=== PATIENT | female | born 1930 | race Caucasian/White ===

== ENCOUNTER 2018-08-05 10:49 | Emergency (ER) | payer MEDICARE ==
[~2018-08-05] VITALS: Ht 157.5 cm; Wt 50.0 kg
[~2018-08-05 10:49] MED LIST: ARICEPT 5MG; ASPIRIN 32325 MG/TA1 PO; CEFTIN 250250 MG/TAB PO; CEFTIN500 MG PO; COLACE 100100 MG/CAP PO; DESYREL 50MG50 MG PO; KEPPRA 500MG500 MG PO; NAMENDA XR PO; PEPCID 20MG TAB20 MG PO; TYLENOL 325MG325 MG PO; VITAMIN B12500 MCG PO; ZOLOFT 25MG25 MG PO
[2018-08-05 10:53] VITALS: TEMP 97.7
[2018-08-05] MEDS ORDERED: LAMICTAL 100MG100 MG PO (11:38)
[2018-08-05] MEDS ORDERED: MIRALAX119G PO (11:38)
[2018-08-05] MEDS ORDERED: CLARITIN 1010 MG/TAB PO (11:39)
[2018-08-05] MEDS ORDERED: SYNTHROID0.05 MG/TA PO (11:39)
[2018-08-05 14:00] VITALS: BP 104/75; PULSE 90
== END 2018-08-05 14:00 | disposition home or self-care (01) ==
LOC: COL.ER 10:49
DX: S09.90XA Unspecified injury of head, initial encounter (principal); S01.81XA Laceration without foreign body of other part of head, initial encounter; F03.90 Unspecified dementia, unspecified severity, without behavioral disturbance, psychotic disturbance, mood disturbance, and anxiety; W06.XXXA Fall from bed, initial encounter

== ENCOUNTER 2018-12-12 19:23 | Inpatient (IN) | payer MEDICARE ==
[~2018-12-12] VITALS: Ht 157.5 cm; Wt 51.2 kg
[~2018-12-12 19:23] MED LIST changes: +CLARITIN 1010 MG/TAB PO; +LAMICTAL 100MG100 MG PO; +MIRALAX119G PO; +SYNTHROID0.05 MG/TA PO
[2018-12-12 20:57] LABS: BASO # 0.1 (0.0-0.2); BASO % 0.9 % (0.0-2.0); EOS # 0.2 (0.0-0.7); EOS % 2.5 % (0-4.0); GRAN # 5.8 (1.4-6.5); GRAN % 73.5 % (42.2-75.2); HEMATOCRIT 40.6 % (37.0-47.0); HEMOGLOBIN 13.5 g/dl (12.5-16.0); LYMPH # 1.3 (1.2-3.4); MEAN CELL VOLUME 101 fl (80.0-100.0); MEAN CORPUSCULAR HEMOGLOBIN 33 pg (27.0-31.0); MEAN CORPUSCULAR HGB CONC 33 g/dl (33.0-37.0); MEAN PLATELET VOLUME 12.1 fl (7.4-10.4); MONO # 0.6 (0.1-0.6); PLATELET COUNT 201 K/mm3 (130-400); RED BLOOD COUNT 4.04 M/mm3 (4.10-5.30); REDCELL DISTRIBUTION WIDTH-CV 13.6 % (11.5-14.5)
[2018-12-12 21:12] LABS: ALANINE AMINOTRANSFERASE 9 U/L (9-52); ALBUMIN 4.2 gm/dL (3.5-5.0); ALKALINE PHOSPHATASE 83 U/L (50-136); ANION GAP 8 mmol/L (7-16); AST,SGOT 26 U/L (15-37); BILIRUBIN,TOTAL 0.4 mg/dL (0.0-1.0); BLOOD UREA NITROGEN 25 mg/dL (7-17); C-REACTIVE PROTEIN < 0.5 mg/dL (0.0-0.9); CARBON DIOXIDE 29 mmol/L (22-30); CHLORIDE 104 mmol/L (98-107); CREATININE, serum 0.72 (0.52-1.25); GLUCOSE 118 mg/dL (74-106); POTASSIUM 3.7 mmol/L (3.4-5.0); SODIUM 141 mmol/L (137-145); TOTAL PROTEIN 8.1 gm/dL (6.4-8.2)
[2018-12-12 21:21] LABS: TROPONIN-I < 0.012 ng/mL (0.000-0.035)
[2018-12-12] MEDS ORDERED: TYLENOL 325MG325 MG PO ×2 (21:25→23:47)
[2018-12-12] MEDS ORDERED: TYLENOL SU650 MG/SUP RC (21:25)
[2018-12-12] MEDS ORDERED: DULCOLAX S10 MG/SUPP RC ×2 (21:26→23:41)
[2018-12-12] MEDS ORDERED: ATROVENTNS0.03% NS (21:27)
[2018-12-12] MEDS ORDERED: LEVAQUIN 2250 MG/TAB PO (21:28)
[2018-12-12] MEDS ORDERED: LAMICTAL 100MG100 MG PO (21:28)
[2018-12-12] MEDS ORDERED: GOOD NEIGH1200 MG/15 PO (21:29)
[2018-12-12] MEDS ORDERED: MIRALAX PA17 GM/Dose PO (21:30)
[2018-12-12] MEDS ORDERED: SYNTHROID0.05 MG/TA PO (21:31)
[2018-12-12] MEDS ORDERED: BACTRIM DS 8001 TAB PO (21:32)
[2018-12-12] MEDS ORDERED: B-12 500 MCG PO (21:32)
[2018-12-12] MEDS ORDERED: DESITIN RAPID REL13% TP (21:33)
[2018-12-12] MEDS ORDERED: MACROBID 1100 MG/CAP PO (21:33)
[2018-12-12 23:07] LABS: COLLECTION METHOD CATHETER
[2018-12-12 23:40] LABS: AMORPHOUS CRYSTAL Present /uL; MUCOUS Present /lpf; PH 6 (5-8); URINE APPEARANCE Turbid; URINE BACTERIA Moderate /hpf; URINE BILIRUBIN Negative (NEGATIVE); URINE BLOOD 1+ (NEGATIVE); URINE COLOR Amber; URINE GLUCOSE Negative (NEGATIVE); URINE KETONE Negative (NEGATIVE); URINE LEUKOCYTE ESTERASE 2+ (NEGATIVE); URINE NITRATE Negative (NEGATIVE); URINE PROTEIN(semi-quant) 1+ (NEGATIVE); URINE UROBILINOGEN Negative (NEGATIVE)
[2018-12-12 23:57] VITALS: BP 123/64; PULSE 89; TEMP 98.1
[2018-12-13] VITALS (294 sets, daily range): BP systolic 94–112; BP diastolic 56–82; PULSE 62–78; TEMP 97.4–98.1; O2SAT 73–100
--- NOTE | 2018-12-13 01:20 | NUR ---
Received bedside report from KAREN Patino.
--- NOTE | 2018-12-13 02:00 | NUR ---
Notified hospitalist of patient's arrival to ICU. Reported patient's current mental status. BP 103/78. Ok to hold PO Vit B12 due to patient current mental status and drowsiness.
--- NOTE | 2018-12-13 02:00 | NUR ---
Assessment complete; patient able to open eyes on command and said "what" one time after her name was called. Not able to follow other commands or verbalize appropriately otherwise. Patient contracted and favors the left side. Pillow placed under left side to offset pressure point. VS stable at this time. Will continue to monitor.
--- NOTE | 2018-12-13 02:18 | NUR ---
Family at bedside; all questions and concerns addressed.
--- NOTE | 2018-12-13 04:00 | NUR ---
Assisted with repositioning. No concerns at this time. VS continue to be stable.
[2018-12-13 06:10] LABS: BASO # 0.1 (0.0-0.2); BASO % 1.3 % (0.0-2.0); EOS # 0.3 (0.0-0.7); EOS % 5.5 % (0-4.0); GRAN # 3.2 (1.4-6.5); GRAN % 60.7 % (42.2-75.2); HEMOGLOBIN 11.7 g/dl (12.5-16.0); LYMPH # 1.3 (1.2-3.4); LYMPH % 25.3 % (20.0-51.0); MEAN CELL VOLUME 104 fl (80.0-100.0); MEAN CORPUSCULAR HEMOGLOBIN 33 pg (27.0-31.0); MEAN CORPUSCULAR HGB CONC 32 g/dl (33.0-37.0); MONO # 0.4 (0.1-0.6); PLATELET COUNT 171 K/mm3 (130-400); RED BLOOD COUNT 3.51 M/mm3 (4.10-5.30); REDCELL DISTRIBUTION WIDTH-CV 13.8 % (11.5-14.5)
[2018-12-13 06:11] LABS: HEMATOCRIT 36.6 % (37.0-47.0)
[2018-12-13 06:19] LABS: CALCIUM 8.2 mg/dL (8.4-10.2); CREATININE, serum 0.62 (0.52-1.25); POTASSIUM 3.5 mmol/L (3.4-5.0)
--- NOTE | 2018-12-13 07:10 | NUR ---
Bedside report recieved from KAREN Sher. Patient sleeping at this time. MIVF rate verified to run to uncomplcated LFA peripheral site. Care assumed.
--- NOTE | 2018-12-13 07:20 | NUR ---
Daughter in law calls and provides privacy passcode. She is updated to POC and all questions asked are answered.
--- NOTE | 2018-12-13 11:27 | NUR ---
Dr. Hsieh rounds at this time. POC discussed to include transfer to medical floor. Orders as entered CPOE.
--- NOTE | 2018-12-13 11:30 | NUR ---
PT works with patient at this time.
--- NOTE | 2018-12-13 12:03 | NUR ---
Palliative care consult recieved on Mrs. Streeter. Message left for son Jorge Streeter at phone number from face sheet regarding palliative care consult and discussion of goals. Spoke with ICU nurse who does not know when to expect family. Will try contact again later today. Pt is being transferred out of ICU.
--- NOTE | 2018-12-13 12:15 | NUR ---
Patient daughter in law calls for update and is provided such to include POC to transfer patient to medical floor and palliative care consult for quality of life planning. States she will be in this afternoon. All questions asked asnwered.
--- NOTE | 2018-12-13 13:01 | NUR ---
Due to patient having dementia, SW attempted to contact patient's son about discharge planning. SW left a message. SW did contact [facility] and confirm that patient is a resident at their facility.
--- NOTE | 2018-12-13 13:47 | NUR ---
Spoke with daughter in law by phone in response to message I had left on their phone. MORALES was planning on coming in but then the rain became quite heavy and she felt unsafe traveling. She did speak with me by phone for a period of time. Son Jorge tends to be very positive about his mother's health but they both see that she is declining. They feel she is getting great care at [facility]. She is on the memory unit and seems to enjoy the "baby doll care" that she is allowed to participate in. She often walks and eats--prefering sweet foods. She used to like [employer] but now maintains herself on the "pink drink" they give her 3x/day. MORALES is very clear that if Eileen cannot be mobile, she is not sure what her quality of life would be. The couple will talk and get back with me later.
--- NOTE | 2018-12-13 13:53 | NUR ---
Report called to Dalia, student RN and KAREN Mendiola.
--- NOTE | 2018-12-13 14:09 | NUR ---
Patient transferred to medical room 354. Dalia, student RN at bedside. Bed left in low and locked position, call light within reach, rails up x3, bed alarm armed and call light within reach. Family called and updated to patient location.
--- NOTE | 2018-12-13 15:07 | NUR ---
Arrived to the room at this time. The bed alarm was put into place and the patient was prepped as a fall risk. No pain or needs reported at this time.
--- NOTE | 2018-12-13 19:17 | NUR ---
Report given to KAREN Quiroz. Pt is in bed. Call light in reach.
--- NOTE | 2018-12-13 19:56 | NUR ---
Pt in bed, confused, refused medications attempted to use pudding to administer, shift assessments complete, left Pt call light in reach, bed in lowest position, bed alarm on.
[2018-12-14 03:21] VITALS: BP 106/72; PULSE 71; TEMP 98.2
--- NOTE | 2018-12-14 05:19 | NUR ---
Pt slept some during the night, she has had no oral intake during the night, this nurse attempted to give her oral medications using pudding without success, Pt has been posturing and talking incoherently during the night. Vs have been stable.
[2018-12-14 07:59] LABS: BASO # 0.1 (0.0-0.2); BASO % 0.9 % (0.0-2.0); EOS # 0.2 (0.0-0.7); EOS % 2.8 % (0-4.0); GRAN # 4.7 (1.4-6.5); GRAN % 70.8 % (42.2-75.2); HEMOGLOBIN 11.1 g/dl (12.5-16.0); LYMPH # 1.2 (1.2-3.4); LYMPH % 17.3 % (20.0-51.0); MEAN CELL VOLUME 103 fl (80.0-100.0); MEAN CORPUSCULAR HEMOGLOBIN 33 pg (27.0-31.0); MEAN CORPUSCULAR HGB CONC 33 g/dl (33.0-37.0); MEAN PLATELET VOLUME 12.6 fl (7.4-10.4); MONO # 0.5 (0.1-0.6); MONO % 8.1 % (1.7-9.3); PLATELET COUNT 165 K/mm3 (130-400); RED BLOOD COUNT 3.32 M/mm3 (4.10-5.30); REDCELL DISTRIBUTION WIDTH-CV 13.5 % (11.5-14.5)
[2018-12-14 08:00] LABS: HEMATOCRIT 34.2 % (37.0-47.0)
[2018-12-14 08:09] VITALS: BP 97/69; PULSE 70; TEMP 98
[2018-12-14 08:20] LABS: CALCIUM 8.3 mg/dL (8.4-10.2); CREATININE, serum 0.5 (0.52-1.25)
[2018-12-14 08:24] LABS: POTASSIUM 2.9 mmol/L (3.4-5.0)
--- NOTE | 2018-12-14 08:29 | NUR ---
Assessment completed, patient is extrememly confused, she is unable to follow commands or answer questions appropriatley, she is easily agitated and it is difficult to perform a physical assessment, heart RRR/ SR on tele, distal pulses are palpable, no reps. difficulty noted, difficult to assess lung sounds as patient is unable to cooperate, she has nix in place and is patent with yellow urine/ some sediment noted, requested urine cx records from PCP office, IVF infusing, potassium low and i will notify hospitalist, no skin breakdown noted, position changes being done frequently, bed alarm is set, will continue to mnitor
--- NOTE | 2018-12-14 10:43 | NUR ---
Family meeting set for 10am was cancelled due to Gayle being ill and son not wanting to participate in palliative care discussion. Gayle reports that they have talked at [facility] about using hospice ([facility]) if she continues to decline but son is not ready to "give up on her yet!" Encouraged Gayle to relay that we will hope for improvement also and continue care here but that a back up plan would be a good idea if things do not improve. I will call family after rounding occurs to update. Also spoke with [facility] nurse, Felicia. She reports that pt has been up walking until the day she was admitted. She is reluctant to eat a lot and prefers, strawberry supplement, diet pepsi, ice cream, and coffee with hazelnut creamer. We are using the baby doll to help comfort her and that is working. I would recommend return to [facility] at discharge and they will continue to work with son and DIL. They have discussed hospice services but "are not ready yet."
[2018-12-14 11:24] VITALS: BP 94/58; PULSE 71; TEMP 98.1
--- NOTE | 2018-12-14 12:58 | NUR ---
Phone call placed to daughter in law Gayle after physician rounding. Plan to keep her here at hospital overnight, stopping IV fluids to encourage her to drink on her own. ST to see. Favorite foods were ordered for lunch. I would encourage family to keep her at [facility] after discharge to see how she does and if no improvement then to consider hospice services at [facility].
[2018-12-14 15:09] VITALS: BP 97/80; PULSE 72; TEMP 98.6
[2018-12-14 20:08] VITALS: BP 102/62; PULSE 73; TEMP 97
--- NOTE | 2018-12-14 23:37 | NUR ---
Patient assessed around 0. Alert, but disoriented to person, place, time, and situation. Speach is clear, but does not make any sense. No s/sx of pain or discomfort, such as facial grimacing and moaning. Patient incontinent of bowel, perineal hygiene care and catheter care provided. Indwelling nix catheter patent, and draining yellow urine with sediment present. LS CTA. Respirations even and unlabored. HRR. BSAx4. No edema noted. Peripheral IV to left forearm is patent, and without redness, warmth, and swelling. Patient refusing to take oral medication. Tried to crush and put in pudding, but spit back out. Fluids and food encouraged, but will not drink or eat anything. Staff repositions in bed. Patient moves around in bed frequently. Bed alarm is on. Resting in bed at this time. Call light is within reach. Continues on toileting/turning schedule. Needs anticipated by staff.
[2018-12-15 00:35] VITALS: BP 119/87; PULSE 78
--- NOTE | 2018-12-15 02:44 | NUR ---
Resting in bed with eyes closed at this time. Indwelling nix catheter continues to be patent, draining yellow urine with sediment present. Staff continues to provide repositioning in bed during rounds. Staff continues to encourage food and fluids, but patient will not take anything by mouth.
[2018-12-15 06:03] VITALS: BP 94/67; PULSE 87; TEMP 97.5
--- NOTE | 2018-12-15 06:16 | NUR ---
Patient repositioned every two hours and changed during the night. Urine output yellow and clear. Had large, soft formed, brown BM. During changing and repositioning, patient does get confused and yells out/strikes at staff. Explaining to patient what staff is doing does not help decrease anxiety, but patient calms down when staff is done with cares, and seems to be resting. Baby doll in bed with patient, which seems to help. Resting in bed with eyes closed at this time. Call light is within reach. Staff continues to encourage fluids, but refuses. Refused oral medication from this nurse throughout the night.
[2018-12-15 07:26] LABS: CALCIUM 8.8 mg/dL (8.4-10.2); CREATININE, serum 0.55 (0.52-1.25); MAGNESIUM 1.9 mg/dL (1.6-2.3); POTASSIUM 4.1 mmol/L (3.4-5.0)
[2018-12-15 07:41] VITALS: BP 106/61; PULSE 76; TEMP 98.1
--- NOTE | 2018-12-15 08:28 | NUR ---
Assessment completed to best of my abiltity, patient is extremely confused/disroriented, get very agitated when trying to do assessment, she is unable to participate or cooperate with her care in any capacity, she has not eaten or drank anything sence being admitted/ she is so mentally and cognitively disconnected, speech is rambling and inappropriate, we had attempted to set up a palliative / family meeting yesterday, Maren ShinRN has been in contact with family/DPOA to assit with developing plan of care, still recieving IV abx for UTI/ has nix which is patent with clear yellow urine- some sediment noted, heart RRR/SR on tele/ distal pulses are palpable, no resp.difficulty, lungs are CTA as far as I can tell /again patient does not allow for an accurate assessment as she gets very agitated, replacing Potassium per protocol, will continue to monitor
[2018-12-15] MEDS ORDERED: PROBIOTIC ACID1 EAC3 PO (09:42)
--- NOTE | 2018-12-15 10:02 | NUR ---
Treatment team rounded on pt and plan is for discharge today to return to [facility]. No further antibiotics have been ordered. Pt has not been eating or drinking at all and will turn away from anything offered. She has not been out of bed and has spent most of her time sleeping and holding her baby doll. I did speak with daughter in law Araujo per phone and advised of these things. Pt has her small wheelchair from [place] in the room and family is fine with her returning by their van transport. Daughter is planning on coming to the hospital to see Eileen this am before discharge.
--- NOTE | 2018-12-15 10:22 | NUR ---
Initial visit; Fudger offered silent prayer for patient who had her eyes closed and appeared somewhat restless and agitated.
--- NOTE | 2018-12-15 11:05 | NUR ---
KIM collaborated with palliative care nurse, Maren. The patient's family are not ready for hospice. The patient's family would like for the patient to return back to [facility]. The patient is to discharge today, 12/15, back to [facility] for long-term care. Transportation was set for 1315, via [facility]. KIM informed the patient's nurse and the patient's [id number] (Jelly), via phone. They were both in agreeance. KIM also explained the IM form to the patient's [id number] via phone. The patient's [id number] gave KIM her verbal consent. KIM placed a copy of the IM in the patient's discharge packet. No additional needs at this time.
--- NOTE | 2018-12-15 13:35 | NUR ---
[facility] staff here to tack picker pt. Pt did cooperate with transfer to her wheelchair. She did demonstrate more verbal skills than previously and did move well for them.
== END 2018-12-15 14:00 | DRG 394 ==
LOC: COL.ER 19:23 → ICU 22:21 → MEDICAL 22:21 → ICU 12-13 00:30 → MEDICAL 12-13 14:14
PROVIDERS: Emergency Medicine; Nurse Practitioner Family; Physician Assistant; ADMIT Family Medicine
DX: K52.1 Toxic gastroenteritis and colitis (principal); N39.0 Urinary tract infection, site not specified; F03.91 Unspecified dementia, unspecified severity, with behavioral disturbance; E87.2 Acidosis; J84.9 Interstitial pulmonary disease, unspecified; E46 Unspecified protein-calorie malnutrition; E86.0 Dehydration; R53.81 Other malaise; E87.6 Hypokalemia; I95.9 Hypotension, unspecified; Z66 Do not resuscitate; Z68.21 Body mass index [BMI] 21.0-21.9, adult; Z87.820 Personal history of traumatic brain injury; Z87.440 Personal history of urinary (tract) infections; T47.4X5A Adverse effect of other laxatives, initial encounter
CPT/HCPCS: OP; 99222-AI; 99233-AI; 99239; A4216; J0696; J1650; J2060; J3480; J7030